=== PATIENT | male | born 1965 | race Two or more races ===

== ENCOUNTER 2025-08-22 07:44 | Inpatient (IN) | payer BC ==
[~2025-08-22] VITALS: Ht 180.3 cm; Wt 98.5 kg
[2025-08-22] VITALS (15 sets, daily range): BP systolic 128–153; BP diastolic 71–88; PULSE 49–98; RESP 10–18; TEMP 96.4–96.5; O2SAT 91–99
[~2025-08-22 07:44] MED LIST: AMLO1TAB22 PO; SIMV10TA20 PO
[2025-08-22] MEDS: CELECOXIB 100 MG CAP PO ONE (09:00)
[2025-08-22] MEDS: ACETAMINOPHEN IV 1000 MG/100ML (10MG/ML) IV PRN (09:00)
[2025-08-22] MEDS: PREGABALIN CAPSULE 75 MG CAP PO ONE (09:00)
[2025-08-22] MEDS ORDERED: NITROGLYCERIN 0.4 MG SL TAB SL PRN (10:45)
[2025-08-22] MEDS ORDERED: MORPHINE SULFATE INJ 2 MG/ml SYRG IV PRN ×2 (10:45→14:15)
[2025-08-22] MEDS ORDERED: OXYCODONE W/ ACETAMINOPHEN 5/325MG TABLET PO PRN ×2 (10:45)
[2025-08-22] MEDS ORDERED: MIDAZOLAM HCL 2MG/2ML 2ml VIAL (1mg/ml) ONE (10:47)
[2025-08-22] MEDS ORDERED: fentaNYL CITRATE 100 MCG/2 ML VL ONE (10:47)
[2025-08-22] MEDS ORDERED: MORPHINE SULF PF 5 MG/10 ML VIAL ONE (10:47)
[2025-08-22] MEDS ORDERED: LIDOCAINE 2% (LOCAL ANESTH.) PF 5ml SDV ONE (10:48)
[2025-08-22] MEDS ORDERED: PROPOFOL 10 MG/ML 20 ML IV ONE (10:48)
[2025-08-22] MEDS ORDERED: SODIUM CHLORIDE LOCK 10 ML ONE (10:48)
[2025-08-22] MEDS ORDERED: BUPIVACAINE/DEXTROSE MPF 0.75% 2 ML AMP IT ONE (10:48)
[2025-08-22] MEDS ORDERED: ONDANSETRON HCL 4 MG/2 ML VIAL ONE (10:48)
[2025-08-22] MEDS ORDERED: KETAMINE 50mg/ML 1ml syringe ONE (10:49)
[2025-08-22] MEDS: TETRACAINE 1% INJ 2 ML VIAL IJ ONE (11:14)
[2025-08-22] MEDS ORDERED: KETAMINE 50mg/ML 10ml Vial 10 ML ONE (11:32)
[2025-08-22] MEDS ORDERED: TRIAMCINOLONE 40MG/ML 1ML VIAL ONE (11:32)
[2025-08-22] MEDS: TRANEXAMIC ACID 20 ML ONE (11:53)
[2025-08-22] MEDS: ceFAZolin 2 GM/D5W50ml 50 ML IV ONE (11:53)
[2025-08-22] MEDS: CEFEPIME 1GM/50ML 50 ML IV ONE (11:53)
[2025-08-22] MEDS: KETOROLAC TROMETH 30 MG/ML 1ML VIAL ONE (12:33)
[2025-08-22] MEDS: VANCOMYCIN HCL 1000 MG VL ONE (12:33)
[2025-08-22] MEDS: BUPIVACAINE 0.25% INJ 50ML VIAL ONE (12:33)
[2025-08-22] MEDS: HYDROmorphone HCL 2 MG/ML VL/or syr IV PRN (12:52)
--- NOTE | 2025-08-22 13:12 | DVHOP2 ---
Discharge Orders Discharge Orders DISCHARGE WHEN CRITERIA MET DISCHARGE WHEN CRITERIA MET. Operative Rep- Outpatient Operative Report PRE-OP DIAGNOSIS: Left knee osteoarthritis POST-OP DIAGNOSIS: Same [place] protocol followed: Yes ESTIMATED BLOOD LOSS: 50 PROCEDURE: Left total knee arthroplasty Computer navigation left total knee arthroplasty Application of negative pressure wound VAC SURGEON/CONCRETE FINISHING MACHINE OPERATOR: Callum RAE ANESTHESIA: INFORMED CONSENT: Informed Consent: Discussed all inherent risks, complications, and alternatives treatments with the patient. Patient has agreed to proceed with the procedure. I have reviewed all pre-operative assessments including Labs, EKGs, and radiographic images that has been performed. Patient is an appropriate candidate for the outpatient surgical center procedure. The patient has a left total knee arthritis the patient has a valgus deformity of the patient is a proximally 15 in valgus. The patient does not have a peroneal nerve palsy however the patient was educated on the risk of peroneal in the bladder based on the valgus deformity the patient is educated on the risks and benefits of surgical and nonsurgical treatment based on the fact that the patient has a valgus deformity of the left knee The patient is educated on the pros and cons of surgical and nonsurgical treatment of the patient understands the risks associated with the total knee arthroplasty the patient would like to proceed with a left total knee arthroplasty the patient is seen in the preoperative holding area of the left lower extremity was marked the patient was brought to operative suite general anesthesia was then induced time-out was hospital protocol Ancef was given for infection prophylaxis TXA was given for bleeding prophylaxis the left lower extremity was prepped and draped in the standard fashion in the Ancef once I was then done on an incision was made through skin subcu tissue muscle fascia down to bone medial parapatellar arthrotomy with a small medial release was then created in a careful manner once it was then completed in a careful manner with a small medial release being completed in the appropriate manner attention was then turned to with a minimal release on the valgus side once I was then done using computer navigation with a 2 degree slope to help with the tip just probably to make up for of the cement list CR knee in the fact of closing of the flexion gap to match the deep dish poly 2 degree slope with flexion extension internal external rotation and educated hematocrit mechanical axis with computer navigation it was then with the proximal tibia cut with a 4 mm off the medial side based on the valgus deformity once it was then completed in the appropriate manner attention was turned to the femur were flexion extension internal external rotation of the femur was then completed with a 3 degree flexion cut in the appropriate manner once it was then done the 4 in 1 cutting block was measured to be size 6 posterior osteophytes were carefully removed once I was then done on the sizing block a size 6 femoral component with a 5 of external rotation matching the epicondylar and Whitesides line once I was then completed in the appropriate manner for 1 cutting block when all of the posterior osteophytes were carefully removed once I was then done a 9 mm placed in the liner was balanced in flexion and extension slightly tight medially of the for the small medial release was then completed on along the posteromedial aspect of the medial aspect once I was then completed in the appropriate manner attention was then turned to the size 4 tibial base plate punching the keel of the along the medial 1/3 tibial tubercle a size 6 femoral component patellar neurectomy and patella osteophytes were carefully done once I was then done the knee was irrigated copiously with saline a size 4 tibial base plate was punched and placed a size 6 femoral component was placed in position a size 9 mm deep dish poly was placed on the knee knee was irrigated copiously with saline and then irrigated closed in full extension with the Ethibond followed by 1. Stratafix and 90 of flexion followed by 0 Vicryl followed by 2-0 Vicryl followed by sta ples. The patient will be weight-bearing as tolerated on the left lower extremity PT OT out of bed daily the patient will have a negative pressure wound VAC. CALLUM KHAN MD Aug 22, 2025 13:12
[2025-08-22] MEDS: ROPIVACAINE 0.5% (5MG/ML) 20ML AMPULE IJ ONE (13:17)
[2025-08-22] MEDS: SODIUM CHLOR 0.9% PF (SALINE LOCK) 10ML VIAL/SYR IV SCH (14:00)
[2025-08-22] MEDS ORDERED: HYDROmorphone HCL 2 MG/ML VL/or syr IV PRN ×2 (14:15)
[2025-08-22] MEDS ORDERED: METOCLOPRAMIDE HCL 5MG/ml INJ 2ml VIAL IV PRN (14:15)
[2025-08-22] MEDS ORDERED: NALOXONE HCL 0.4 MG/ML VIAL IV PRN (14:15)
[2025-08-22] MEDS: KETOROLAC TROMETH 30 MG/ML 1ML VIAL IV ONE (14:15)
[2025-08-22] MEDS ORDERED: diphenhydrAMINE HCL 50 MG/1 ML VL IV PRN (14:15)
[2025-08-22] MEDS ORDERED: MORPHINE SULFATE 4 MG/ML SYR/VIAL IV PRN (14:15)
[2025-08-22] MEDS: ceFAZolin 1GM/50ML 50 ML IV SCH (16:39)
[2025-08-22] MEDS: LACTATED RINGER'S 1,000 ML IV SCH (16:39)
--- NOTE | 2025-08-22 17:33 | DVH ---
CLINICAL INDICATION: S/P SURGERY TECHNIQUE: XY L KNEE 3V XRAY Comparison: XR KNEE LEFT 3 VIEW on DOS: 02/15/25 FINDINGS/IMPRESSION: : Expected findings post left knee arthroplasty.
[2025-08-22] MEDS: PRAVASTATIN SODIUM 20 MG TAB PO SCH (21:56)
[2025-08-22] MEDS: DOCUSATE SOD 100 MG CAP PO SCH (21:56)
[2025-08-23] VITALS (23 sets, daily range): BP systolic 122–174; BP diastolic 70–103; PULSE 67–102; RESP 16–20; TEMP 97.6–99.4; O2SAT 2–99
[2025-08-23] MEDS: ONDANSETRON HCL 4 MG/2 ML VIAL IV PRN (02:59)
[2025-08-23] MEDS: OXYCODONE W/ ACETAMINOPHEN 5/325MG TABLET PO PRN (06:44)
[2025-08-23 06:48] LABS: Hematocrit 39.4 % (41.0-53.0); Hemoglobin 13.7 g/dL (13.5-17.5)
[2025-08-23 07:04] LABS: Alkaline Phosphatase 58 U/L (46-116); Anion Gap 9 (5-15); BUN/Creatinine Ratio 15.5 (10.0-20.0); Blood Urea Nitrogen 13 mg/dL (9-23); Carbon Dioxide 27 mmol/L (20-31); Potassium 4.1 mmol/L (3.5-5.1)
[2025-08-23 07:05] LABS: Total Protein 6.0 g/dL (5.7-8.2)
[2025-08-23 07:06] LABS: Albumin 4.0 g/dL (3.2-4.8); Bilirubin, Total 0.7 mg/dL (0.2-1.0)
[2025-08-23 07:17] LABS: Alanine Aminotransferase 46 U/L (7-40); Calcium 8.4 mg/dL (8.7-10.4); Chloride 97 mmol/L (98-107); Glucose 130 mg/dL (74-106); Sodium 133 mmol/L (136-145)
[2025-08-23] MEDS ORDERED: hydrALAZINE HCL 20 MG/ML VL IV PRN (09:15)
[2025-08-23] MEDS: ENOXAPARIN SOD 40 MG/0.4 ML SYRINGE SC SCH (10:37)
[2025-08-23] MEDS: TAMSULOSIN HYDROCHLORIDE 0.4 MG CAP PO ONE (10:37)
[2025-08-23] MEDS: CEFEPIME 1GM/50ML 50 ML IV SCH ×2 (10:42→22:32)
--- NOTE | 2025-08-23 14:58 | DVHINCON2 ---
Date of service: Aug 23, 2025 Referring Physician Orthopedic surgeon Reason for Consultation Medical management while in the hospital History of Present Illness This is a 60-year-old patient admitted by orthopedic surgeon and underwent a successful left knee arthroplasty. Postop he is admitted to the hospital and hospitalist consultation is being requested for medical management. Currently patient complains of pain and his blood pressure is mildly elevated. Patient apparently had difficulty urinating overnight had a straight cath done. However today he is urinating on his own without any issues. Past Medical History Hypertension, hypercholesterolemia, left knee osteoarthritis Past Surgical History Left knee surgery Allergies: Coded Allergies: NO KNOWN ALLERGIES (Unverified , 08/19/25) Home Meds Reported Medications Simvastatin (Simvastatin) 10 Mg Tab, 10 MG PO QPM, TAB 08/19/25 Amlodipine Besylate (Amlodipine Besylate) 5 Mg Tab, 5 MG PO DAILY, TAB 08/19/25 Current Medications Current Medications Medications (Trade) Dose Ordered Sig/Evie Route PRN Reason Start Time Stop Time Status Last Admin Amlodipine Besylate (Norvasc Tablet) 5 mg DAILY PO 08/23/25 10:00 08/23/25 07:17 Pravastatin Sodium (Pravachol Tablet) 20 mg HS PO 08/22/25 22:00 08/22/25 21:56 Oxycodone HCl (OxyCONTIN ER Tablet) 10 mg Q12HR PO 08/22/25 22:00 08/23/25 10:37 Docusate Sodium (Colace Capsule) 100 mg Q12HR PO 08/22/25 22:00 08/23/25 10:36 Cefepime HCl 50 ml @ 12.5 mls/hr DAILY IV 08/23/25 10:00 08/23/25 10:42 Ondansetron HCl (Zofran) 4 mg Q4HPRN PRN IV NAUSEA / VOMITING 08/22/25 21:45 08/23/25 02:59 Hydralazine HCl (Apresoline Injection) 10 mg Q4HPRN PRN IV SBP>150 08/23/25 09:15 Tamsulosin HCl (Flomax) 0.4 mg QPM PO 08/23/25 18:00 Enoxaparin Sodium (Lovenox) 40 mg DAILY SC 08/23/25 10:00 08/23/25 10:37 Review of Systems Denies any chest pain shortness for breath headache dizziness or lightheadedness. Other review of systems reviewed normal. Vital Signs Vital Signs Date Time Temp Pulse Resp B/P (MAP) Pulse Ox O2 Delivery O2 Flow Rate FiO2 08/23/25 14:55 105 14 145/79 08/23/25 12:51 98.0 92 98.0 08/23/25 08:00 Nasal Cannula* 2 28 Physical Exam Alert awake oriented x3. Comfortable in bed without distress. HEENT neck supple no JVD pupils equal round react to light. Heart regular rate and rhythm S1-S2 no murmurs. Lungs chest tube will expansion fair air movement without rales wheezes. Abdomen soft nontender nondistended obese positive bowel sounds extremities no edema positive pulses. Labs/Diagnostic Data Labs Test 08/23/25 05:26 Range/Units Hemoglobin 13.7 13.5-17.5 g/dL Hematocrit 39.4 L 41.0-53.0 % Sodium Level 133 L 136-145 mmol/L Potassium Level 4.1 3.5-5.1 mmol/L Chloride Level 97 L 98-107 mmol/L Carbon Dioxide Level 27 20-31 mmol/L Anion Gap 9 5-15 Blood Urea Nitrogen 13 9-23 mg/dL Creatinine 0.84 0.700-1.30 mg/dL Glomerular Filtration Rate Calc 100 >90 mL/min BUN/Creatinine Ratio 15.5 10.0-20.0 Serum Glucose 130 H 74-106 mg/dL Calcium Level 8.4 L 8.7-10.4 mg/dL Total Bilirubin 0.7 0.2-1.0 mg/dL Aspartate Amino Transferase (AST) 28 13-40 U/L Alanine Aminotransferase (ALT) 46 H 7-40 U/L Alkaline Phosphatase 58 46-116 U/L Total Protein 6.0 5.7-8.2 g/dL Albumin 4.0 3.2-4.8 g/dL Microbiology Date/Time Source Procedure Growth Status 08/22/25 18:22 Nose MRSA Screen - Final Complete Assessment Left knee osteoarthritis status post left total knee arthroplasty Hypertension Hypercholesterolemia I will add hydralazine IV as needed for high blood pressure. Resume his home blood pressure medications. Continue current pain management. Physical therapy evaluation. Supportive care and treatment. Further clinical management per clinical course. Discussed with the patient and nurse regarding care plan. Plan discussed with: Patient NIRANJAN YANCEY MD Aug 23, 2025 14:58
[2025-08-23] MEDS: TAMSULOSIN HYDROCHLORIDE 0.4 MG CAP PO SCH (18:41)
[2025-08-23] MEDS: HYDROmorphone HCL 2 MG/ML VL/or syr IV PRN (20:41)
[2025-08-23] MEDS: SENNA 8.6 MG TAB PO SCH (22:14)
[2025-08-24 01:00] VITALS: BP 127/74; PULSE 91; RESP 17; TEMP 97.6; O2SAT 95
[2025-08-24 05:00] VITALS: BP 135/80; PULSE 81; RESP 17; TEMP 99.4; O2SAT 94
[2025-08-24 06:59] LABS: Hematocrit 36.3 % (41.0-53.0); Hemoglobin 12.7 g/dL (13.5-17.5)
[2025-08-24 08:00] VITALS: PULSE 95
--- NOTE | 2025-08-24 08:14 | DVHDS2 ---
Discharge Summary Date of Admission Aug 22, 2025 at 10:38 Date of Discharge: Aug 24, 2025 Wounds: 1. You will likely have a gel-type dressing over your wound, you may keep this on for 7-14 days after leaving the hospital until your first post-op visit, unless it becomes soiled or your skin becomes irritated. If a wound vac dressing is placed on your knee this is to be left in place for one week and will be changed as needed. After your remove the dressing or wound vac, the home health nurse may place clean dry dressing over your wound. Keep wound covered, clean and dry for two weeks. 2. [place] will be removed during your initial post-op visit. If you have concerns about our wound, please call the office immediately. If nervous about staple removal can take pain pill one hour prior to appointment. 3. If there is drainage from your wound, change the dressing daily until it stops. If drainage lasts more than 10 days, call our office. 4. Low grade (up to 100 degrees) fever is common for the first week after surgery. You should take your temperature daily. If you have fevers of 101 or more, please call the office. Labs/Diagnostic Data: Laboratory Results Test 08/24/25 05:47 08/23/25 05:26 Hemoglobin 12.7 g/dL (13.5-17.5) Hematocrit 36.3 % (41.0-53.0) Sodium Level 133 mmol/L (136-145) Potassium Level 4.1 mmol/L (3.5-5.1) Chloride Level 97 mmol/L (98-107) Carbon Dioxide Level 27 mmol/L (20-31) Anion Gap 9 (5-15) Blood Urea Nitrogen 13 mg/dL (9-23) Creatinine 0.84 mg/dL (0.700-1.30) Glomerular Filtration Rate Calc 100 mL/min (>90) BUN/Creatinine Ratio 15.5 (10.0-20.0) Serum Glucose 130 mg/dL (74-106) Calcium Level 8.4 mg/dL (8.7-10.4) Total Bilirubin 0.7 mg/dL (0.2-1.0) Aspartate Amino Transferase (AST) 28 U/L (13-40) Alanine Aminotransferase (ALT) 46 U/L (7-40) Alkaline Phosphatase 58 U/L (46-116) Total Protein 6.0 g/dL (5.7-8.2) Albumin 4.0 g/dL (3.2-4.8) Other Laboratory Tests 08/24/25 05:47 08/23/25 05:26 Brief Hx & Hospital Course: s/p left TKA Condition at Discharge: Good Final Diagnosis/Problems List left knee osteoarthritis Discharge Disposition: Home with Health Services Discharge Instruct/Medications Diet: Regular Diet comment: may advance diet as tolerated Activity: See Comment Activity comment: 1.CPM as ordered, goal is for 6 hours every day for the first 21 days of your recovery. Can break it up in to increments of 2-3 hours at a time. Most hospitals will start at 45 degrees of flexion, and increase by 5 degrees daily until the machine has been maxed out. The goal is to be at 90 degrees by first postop visit in 2 weeks. 2.No pool, jacuzzi, beach, reina or bath for 6 weeks. Once all scabbing has fallen off patient can begin soaking and submerging knee under water for 15-minute periods at a time. 3.Physical therapy is critical in the first 2 weeks. If having issues with scheduling please inform office. 4.No running or jumping for 6 weeks. 5.Can walk and bear as much weight on the surgical leg as tolerated. No restrictions in regards to walking or standing. Follow Up/Referral: 1.Driving is not permitted within the first 2 weeks. 2.Your first postoperative visit will take place 2 weeks after discharge. Please call the office once you are home from the hospital to arrange this appointment. 3.Antibiotic preventative treatment is required before dental or other invasive procedures. Please ask your surgeon about this at your first postoperative visit. If you experience chest pain, shortness of breath or severe painful calf swelling, go to the nearest emergency room to be evaluated. Please call our office once your situation is stabilized. Medications: 1.You will be discharged with pain medication, a blood thinner (unless you were previously on a blood thinner prior to surgery) and stool softener. Please follow the instructions regarding these medications as provided by your nurse at the hospital upon discharge. 2.Blood clots in the leg are a known complication of surgery. It is very important that you take the medication to protect against clots. Depending on what you are discharged on typically it is Lovenox 40mg daily for 2 weeks or Aspirin 81mg twice daily for 4 weeks. After you finish this, you should then take baby Aspirin (81mg) once daily for 2 weeks. 3.You should restart all of your prescription medications once discharged from the hospital/surgery center unless specifically instructed otherwise. 4.Herbal supplements may be restarted 2 weeks after surgery. 5.If you have been given Coumadin as a blood thinner, please follow up with your travel professional during the first two weeks after surgery to review medications and overall medical well-being. 6.Please note that narcotic pain medication may cause constipation. Please remember to take stool softeners (Colace) when using narcotics to help reduce the change of constipation. You should not use alcohol together with narcotic medication. Scheduled Amlodipine Besylate (Amlodipine Besylate), 5 MG PO DAILY, (Reported) Simvastatin (Simvastatin), 10 MG PO QPM, (Reported) Discharge Statement: "Patient was advised to return to the ER or call 911 if any headaches, dizziness, shortness of breath, chest pain, abdominal pain, bleeding, fevers, or worsening of medical condition. Patient was counseled about treatment plan, medications, possible side effects, patientverbalized understanding. All questions were answered to the best of my ability. This discharge took greater then 30 minutes in planning, reviewing documentation, counseling the patient, and discussing with other team members." ASSESSMENT ASSESSMENT Assessment LCAEY REED NP Aug 24, 2025 08:14
[2025-08-24 09:00] VITALS: BP 131/84; PULSE 90; RESP 16; TEMP 99.2; O2SAT 93
[2025-08-24 11:59] VITALS: BP 131/84; TEMP 37.3
== END 2025-08-24 12:28 | disposition home health service (06) | DRG 470 ==
LOC: SUR 07:44 → OVERFLOW 10:38 → CENTRAL 14:41
PROVIDERS: ADMIT Orthopaedic Surgery Adult Reconstructive Orthopaedic Surgery; ATTEND Orthopaedic Surgery Adult Reconstructive Orthopaedic Surgery
PROC: 8E0YXBZ Computer Assisted Procedure of Lower Extremity (ICD-10-PCS; 2025-08-22)
PROC: 0SRD0J9 Replacement of Left Knee Joint with Synthetic Substitute, Cemented, Open Approach (ICD-10-PCS; principal; 2025-08-22 11:53)
DX: M17.12 Unilateral primary osteoarthritis, left knee (principal); I10 Essential (primary) hypertension; E78.00 Pure hypercholesterolemia, unspecified; Z79.899 Other long term (current) drug therapy
CPT/HCPCS: 36415; 73562; 80053; 85014; 85018; 86850; 86900; 86901; 87081; 97110; 97116; 97163; 97530; G0378; J0131; J1885; J2003; J2250; J2405; J2704; J3490